=== PATIENT | male | born 1945 | race Caucasian/White ===

== ENCOUNTER 2025-02-22 16:04 | Emergency (ER) | payer MEDICARE, SELFPAY ==
[2025-02-22 16:11] VITALS: BP 137/74
[2025-02-22 16:36] LABS: Hematocrit 39.3 % (39.0-52.0); Hemoglobin 12.6 g/dL (13.0-18.0); Mean Corp Hgb Conc. 32.1 g/dL (33.0-37.0); Mean Corpuscular Volume 92.3 fL (80.0-94.0); Nucleated Red Blood Cells % 0 % (-); Platelet Count 213 10^3/uL (130-400); Red Cell Dist. Width 13.6 % (11.5-14.5)
[2025-02-22 16:52] LABS: ALT (SGPT) 42 U/L (0-50); AST (SGOT) 119 U/L (17-59); Albumin 4.8 g/dl (3.5-5.0); Alkaline Phosphatase 40 U/L (38-126); Blood Urea Nitrogen 13 mg/dl (9-20); Calcium 9.6 mg/dl (8.4-10.2); Carbon Dioxide 29 mmol/L (22-30); Chloride 105 mmol/L (98-107); Glucose 116 mg/dl (70-99); Potassium 4.0 mmol/L (3.5-5.1); Sodium 143 mmol/L (135-145); Total Protein 7.4 g/dl (6.3-8.2); eGFR > 60.00
[2025-02-22 17:04] LABS: Troponin I 1.920 ng/ml
[2025-02-22 17:12] LABS: Urine Character Clear (Clear)
[2025-02-22 17:21] VITALS: BP 134/74
--- NOTE | 2025-02-22 17:33 | ED.GENMED ---
History of Present Illness
<JEAN Cano - Last Filed: 02/22/25 18:55>
General
Chief Complaint: Dizziness
Source: patient
Exam Limitations: none
Time Seen by Provider: 02/22/25 17:32
Nursing documentation reviewed up to this point in time: agreed with
History of Present Illness
History of Present Illness:
80-year-old male with past medical history of A-fib CHF anemia presents to the ER for evaluation. Patient recently had an ablation 3 days ago February 19 at [facility]. he stayed overnight as part of the hospitalization however the following day went back
into A-fib and was cardioverted. He was discharged on Wednesday. He felt fine yesterday but today had an episode of lightheadedness while sitting at his kitchen table. This lasted for less than 2 seconds. He had no associated chest pain or
shortness of breath. 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 He is on daily medications including Eliquis has not missed a dose. In addition he is on metoprolol 50 mg
every day and did take a dose this morning.
He is followed by Dr. Julien Grimm (the knit goods mender at [facility]) and Dr. Thomas Mehta cardiology .
Phy Exam
<JEAN Cano - Last Filed: 02/22/25 18:55>
General Physical Exam
General Presentation: no apparent distress
General age: appears stated age
General Skin: warm and dry
General Habitus: normal
General Mental: alert
General Hydration: appears well hydrated
Cardiovascular Exam
Cardiovascular Exam: normal peripheral pulses and bradycardia
Pulmonary Exam
Pulmonary Exam: lungs clear and no respiratory distress
Neurological Exam
Neurological Exam: alert and oriented x3
Musculoskeletal Exam
Musculoskeletal Exam: full ROM
Skin Exam
Skin Exam: normal color and warm/dry
Psychiatric Exam
Psychiatric Exam: normal mood/affect
Course
<JEAN Cano - Last Filed: 02/22/25 18:55>
Orders/Labs/Results
Orders:
Orders
02/22/25 16:05
EKG [Electrocardiogram (*1)] Urgent
Reason for Study: Atrial Fibrillation
EKG- Treatment ONCE
02/22/25 16:22
Complete Blood Count/With Diff Urgent
Comprehensive Metabolic Panel Urgent
Troponin I Urgent
UA [Urinalysis] Urgent
Date Specimen was Collected: 02/22/25
Time Specimen was Collected: 16:18
02/22/25 18:49
Vital Signs- Treatment ONCE
Frequency: Once
Abnormal Lab Results
02/22/25
16:22
RBC 4.26 L 10^6/uL
(4.70-6.10)
Hgb 12.6 L g/dL
(13.0-18.0)
MCHC 32.1 L g/dL
(33.0-37.0)
Absolute Monos (auto) 0.7 H 10^3/uL
(0.1-0.6)
Glucose 116 H mg/dl
(70-99)
AST 119 H U/L
(17-59)
Troponin I 1.920 H* ng/ml
Urine Glucose 4+ A
(Negative)
02/22/25 16:22
02/22/25 16:22
Vital Signs
Initial and Last Documented VS:
Initial Vital Signs
Temp Pulse Resp BP Pulse Ox
98.2 F 57 16 137/74 98
02/22/25 16:11 02/22/25 16:11 02/22/25 16:11 02/22/25 16:11 02/22/25 16:11
Last Documented Vital Signs
Temp Pulse Resp BP Pulse Ox
98.9 F 51 18 129/79 98
02/22/25 19:16 02/22/25 19:16 02/22/25 19:16 02/22/25 19:13 02/22/25 19:16
Estimator Project Manager consulted with Physician
Estimator Project Manager consulted with physician?: Yes
Name of Physician Consulted: Andre
<Marlo Vail, DO - Last Filed: 02/22/25 20:19>
Orders/Labs/Results
Orders:
Orders
02/22/25 16:05
EKG [Electrocardiogram (*1)] Urgent
Reason for Study: Atrial Fibrillation
EKG- Treatment ONCE
02/22/25 16:22
Complete Blood Count/With Diff Urgent
Comprehensive Metabolic Panel Urgent
Troponin I Urgent
UA [Urinalysis] Urgent
Date Specimen was Collected: 02/22/25
Time Specimen was Collected: 16:18
02/22/25 18:49
Vital Signs- Treatment ONCE
Frequency: Once
Abnormal Lab Results
02/22/25
16:22
RBC 4.26 L 10^6/uL
(4.70-6.10)
Hgb 12.6 L g/dL
(13.0-18.0)
MCHC 32.1 L g/dL
(33.0-37.0)
Absolute Monos (auto) 0.7 H 10^3/uL
(0.1-0.6)
Glucose 116 H mg/dl
(70-99)
AST 119 H U/L
(17-59)
Troponin I 1.920 H* ng/ml
Urine Glucose 4+ A
(Negative)
02/22/25 16:22
02/22/25 16:22
Vital Signs
Initial and Last Documented VS:
Initial Vital Signs
Temp Pulse Resp BP Pulse Ox
98.2 F 57 16 137/74 98
02/22/25 16:11 02/22/25 16:11 02/22/25 16:11 02/22/25 16:11 02/22/25 16:11
Last Documented Vital Signs
Temp Pulse Resp BP Pulse Ox
98.9 F 51 18 129/79 98
02/22/25 19:16 02/22/25 19:16 02/22/25 19:16 02/22/25 19:13 02/22/25 19:16
<JEAN Cano - Last Filed: 02/22/25 18:55>
MDM/Problems Addressed
Differential Diagnosis Includes:
Not limited to arrhythmia, dehydration, anemia
MDM/Problems Addressed:
As documented patient is an 80-year-old male with history of A-fib on Eliquis had recent cardioversion and ablation at [facility]. He was discharged on Wednesday felt fine yesterday had a brief episode of lightheadedness this morning. He was sent in the
ER to rule out A-fib.
he has been asymptomatic since this morning episode was very brief with no associated chest pain. Patient presented in no acute distress sinus bradycardic in the 50s. Cardiac troponin was done prior to my exam and is elevated. This can be
attributed to recent cardioversion and ablation. He had no complaints of chest pain. No other acute concerning EKG findings.
Patient otherwise is well-appearing in no acute distress. I did discuss case with his knit goods mender . Will have patient hold metoprolol until seen by cardiology in light of bradycardia. I did review this with patient he
is comfortable with plan of care to return if any worsening of symptoms
<JEAN Cano - Last Filed: 02/22/25 18:55>
*Pulse Oximetry
SaO2: 98
Oxygen Mode of Delivery: Room air
Patient hypoxic: no
*EKG
Interpreted by ED Provider?: Yes
Heart Rate: 54
Rate: bradycardiac
Rhythm: sinus
Ischemia: no ischemia
*Critical Care Note
Total Time (30-74mins, 75-104mins- exclusive of procedures): Not Applicable
<JEAN Cano - Last Filed: 02/22/25 18:55>
Patient Management
Discussion with other providers: Consultative Sales Associate (Cardiology at [facility] Dr. Christie )
ED Attending Note
<JEAN Cano - Last Filed: 02/22/25 18:55>
-
Portions of this chart may have been created with voice recognition software.� Occasional wrong word or��sound alike� substitutions may have occurred due to the inherent limitations of voice recognition software.
<Marlo Vail DO - Last Filed: 02/22/25 20:19>
ED Attending Note
I performed the substantive portion of visit, reviewed & personally made and approve the management plan that is documented in note by myself or KETURAH.: Yes
Discharge Plan
Departure
Patient Disposition: Home (Routine Discharge)
Date of Disposition: 02/22/25
Time of Disposition: 18:50
Patient with high blood pressure during this ER visit?: No
Condition: Fair
Covid-19: Not Applicable
Discharge Problem:
Dizziness, Bradycardia
Instructions: Bradycardia, Dizziness
Referrals:
Julien Christie DO [Non-Admitting Privileges, Internal Medicine]
UNKNOWN,NO INTERVIEW [Unknown Provider]
Activity Restrictions/Additional Instructions:
As discussed your heart rate was low here and we did speak with your knit goods mender who does recommend stopping metoprolol. Please closely follow-up with your knit goods mender as well as your nursing officer for further
reevaluation. Return if any worsening of symptoms.
Interventions
Interventions:
*Risk Screen - Suicide Last Done: 02/22/25 16:11
*General Assessment Last Done: 02/22/25 17:47
*Neglect/Abuse Screening Last Done: 02/22/25 16:11
*ED- Fall Risk Assessment Last Done: 02/22/25 17:47
*ED COVID-19 Vaccine History Last Done: 02/22/25 17:46
*ED Influenza Vaccine History Last Done: 02/22/25 17:46
*Nursing Disposition Last Done: 02/22/25 19:17
ED- Neurological Assessment Last Done: 02/22/25 17:40
ED- Cardiac Assessment Last Done: 02/22/25 17:41
ED Swallowing Screen Last Done: 02/22/25 17:40
Discharge Date and Time
Discharge Date/Time: 02/22/25 19:17
Print Language: MALAWIAN
[2025-02-22 17:42] VITALS: BMI 22.4
[2025-02-22 19:13] VITALS: BP 129/79
== END 2025-02-22 19:17 | disposition home or self-care (01) ==
LOC: EMR 16:04
PROVIDERS: Student in an Organized Health Care Education/Training Program; EMERGENCY PHYSICIAN Emergency Medicine; FAMILY PHYSICIAN Nurse Practitioner Gerontology
DX: R42 Dizziness and giddiness (principal); R00.1 Bradycardia, unspecified; I48.91 Unspecified atrial fibrillation; I50.9 Heart failure, unspecified; Z79.01 Long term (current) use of anticoagulants
CPT/HCPCS: 99284; 80053; 81003; 84484; 85025; 93005